=== PATIENT | female | born 1935 | race Caucasian/White ===

== ENCOUNTER → 2016-10-17 | Outpatient (CLI) | payer MEDICARE ==
[2016-10-17 10:26] LABS: ALKALINE PHOSPHATASE 66 U/L (45-117); ALT (GPT) 24 U/L (10-53); ANION GAP 5 MEQ/L (5-15); AST (GOT) 17 U/L (15-37); BICARBONATE 31.5 MEQ/L (21.0-32.0); BLOOD UREA NITROGEN 9 MG/DL (7-18); CHLORIDE 106 MEQ/L (98-107); GLOMERULAR FILTRATION RATE 64 ML/MIN (>89); GLUCOSE,FASTING 91 MG/DL (74-99); HDL CHOLESTEROL 60.5 MG/DL (40.0-60.0); LDL CHOLESTEROL 46 MG/DL (0-99); POTASSIUM 4.4 MEQ/L (3.5-5.1); SODIUM (NA) 142 MEQ/L (136-145); TOTAL BILIRUBIN ADULT 0.5 MG/DL (0.2-1.0)
[2016-10-17 10:38] LABS: CREATINE KINASE 34 U/L (26-192)
== END ==
LOC: PLAB 07:48
DX: E78.00 Pure hypercholesterolemia, unspecified (principal); Z79.899 Other long term (current) drug therapy
CPT/HCPCS: 36415; 80053; 80061; 82550

== ENCOUNTER → 2017-05-05 | Outpatient (CLI) | payer MEDICARE ==
[2017-05-05 12:11] LABS: HEMATOCRIT 41.8 % (35.0-46.0); MEAN CELL VOLUME 96.7 FL (80.0-100.0); MEAN CORPUSCULAR HEMOGLOBIN 31.6 PG (27.0-34.0); MEAN CORPUSCULAR HGB CONC 32.7 % (32.0-36.0); PLATELET COUNT 190 TH/MM3 (150-450); RED BLOOD COUNT 4.32 MIL/MM3 (4.00-5.30); RED CELL DISTRIBUTION WIDTH 13.1 % (11.6-17.2); REVIEW FLAG FINAL; WHITE BLOOD COUNT 4.9 TH/MM3 (4.0-11.0)
[2017-05-05 12:51] LABS: ANION GAP 5 MEQ/L (5-15); AST (GOT) 18 U/L (15-37); BLOOD UREA NITROGEN 14 MG/DL (7-18); CHLORIDE 105 MEQ/L (98-107); GLOMERULAR FILTRATION RATE 75 ML/MIN (>89); GLUCOSE,FASTING 92 MG/DL (74-99); POTASSIUM 4.1 MEQ/L (3.5-5.1); SODIUM (NA) 139 MEQ/L (136-145)
[2017-05-05 12:52] LABS: ALT (GPT) 29 U/L (10-53)
[2017-05-05 12:55] LABS: ALKALINE PHOSPHATASE 71 U/L (45-117); HDL CHOLESTEROL 56.9 MG/DL (40.0-60.0); LDL CHOLESTEROL 65 MG/DL (0-99); TOTAL BILIRUBIN ADULT 0.3 MG/DL (0.2-1.0)
[2017-05-05 12:56] LABS: CREATINE KINASE 55 U/L (26-192)
== END ==
LOC: PLAB 07:44
DX: E78.00 Pure hypercholesterolemia, unspecified (principal); Z79.899 Other long term (current) drug therapy
CPT/HCPCS: 36415; 80053; 80061; 82550; 85027

== ENCOUNTER → 2017-07-22 | Outpatient (CLI) | payer MEDICARE ==
[2017-07-22 13:36] LABS: BLOOD, URINE NEG (NEG); GLUCOSE,URINE NEG (NEG); KETONE, URINE NEG (NEG); MUCUS URINE FEW /lpf (OCC); NITRITE,URINE NEG (NEG); PH, URINE 7.5 (5.0-8.5); SQUAMOUS EPITHELIAL CELL URINE <1 /hpf (0-5); URINE COLOR YELLOW (YELLW/STRAW)
[2017-07-22 13:50] LABS: AUTOMATED NEUTROPHIL # 2.4 TH/MM3 (1.8-7.7); BASOPHIL % 0.3 % (0.0-2.0); EOSINOPHIL # 0.1 TH/MM3 (0-0.4); EOSINOPHIL % 1.6 % (0.0-4.0); HEMATOCRIT 42.8 % (35.0-46.0); HEMO FLAGS DIFF FINAL; LYMPH % 33.5 % (9.0-44.0); LYMPHOCYTE # 1.5 TH/MM3 (1.0-4.8); MEAN CELL VOLUME 95.2 FL (80.0-100.0); MEAN CORPUSCULAR HEMOGLOBIN 31.9 PG (27.0-34.0); MEAN CORPUSCULAR HGB CONC 33.5 % (32.0-36.0); MONO % 9.1 % (0.0-8.0); NEUT % 55.5 % (16.0-70.0); PLATELET COUNT 174 TH/MM3 (150-450); RED CELL DISTRIBUTION WIDTH 13.1 % (11.6-17.2); WHITE BLOOD COUNT 4.4 TH/MM3 (4.0-11.0)
[2017-07-22 14:08] LABS: ANION GAP 6 MEQ/L (5-15); AST (GOT) 29 U/L (15-37); BICARBONATE 27.6 MEQ/L (21.0-32.0); BLOOD UREA NITROGEN 17 MG/DL (7-18); CHLORIDE 105 MEQ/L (98-107); GLOMERULAR FILTRATION RATE 70 ML/MIN (>89); SODIUM (NA) 139 MEQ/L (136-145)
[2017-07-22 14:13] LABS: ALKALINE PHOSPHATASE 68 U/L (45-117); ALT (GPT) 45 U/L (10-53); TOTAL BILIRUBIN ADULT 0.4 MG/DL (0.2-1.0)
[2017-07-22 22:32] LABS: TOTAL PROTEIN SPE 6.1 GM/DL (6.0-7.6)
[2017-07-22 22:46] LABS: ALBUMIN SPE 3.98 GM/DL (3.50-5.00); ALPHA 1 GLOBULIN 0.16 GM/DL (0.11-0.29); ALPHA 2 GLOBULIN 0.71 GM/DL (0.22-1.00); BETA GLOBULINS (SPE) 0.6 GM/DL (0.53-1.03)
[2017-07-23 15:46] LABS: ANA SCREEN POS (NEG)
[2017-07-23 23:52] LABS: THYROGLOB ABS LESS THAN 1 IU/mL (< OR = 1)
[2017-07-25 15:51] LABS: A TENUIS 1 kU/L; A TENUIS CLASS 2; ALMOND LESS THAN 0.10 kU/L; ALMOND CLASS 0; BAHIA GRASS LESS THAN 0.10 kU/L; BAHIA GRASS CLASS 0; BERMUDA GRASS LESS THAN 0.10 kU/L; BERMUDA GRASS CLASS 0; BIRCH CLASS 0; C HERBARUM LESS THAN 0.10 kU/L; C HERBARUM CLASS 0; CASHEW CLASS 0; CAT DANDER LESS THAN 0.10 kU/L; CAT DANDER CLASS 0; COCKROACH LESS THAN 0.10 kU/L; COCKROACH CLASS 0; CODFISH CLASS 0; COMMON PIGWEED LESS THAN 0.10 kU/L; COMMON PIGWEED CLASS 0; COMMON RAGWEED 0.18 kU/L; COWS MILK CLASS 0; COWS MILK IGE LESS THAN 0.10 kU/L; D FARINAE 0.12 kU/L; D PTERONYSSINUS LESS THAN 0.10 kU/L; D PTERONYSSINUS CLASS 0; DOG DANDER LESS THAN 0.10 kU/L; DOG DANDER CLASS 0; EGG WHITE LESS THAN 0.10 kU/L; EGG WHITE CLASS 0; ELM CLASS 0; HAZELNUT LESS THAN 0.10 kU/L; HAZELNUT CLASS 0; MAPLE (BOX ELDER) LESS THAN 0.10 kU/L; MAPLE (BOX ELDER) CLASS 0; MOUNTAIN CEDAR LESS THAN 0.10 kU/L; MOUNTAIN CEDAR CLASS 0; MOUSE CLASS 0; MOUSE URINE PROTEINS LESS THAN 0.10 kU/L; NETTLE LESS THAN 0.10 kU/L; NETTLE CLASS 0; OAK WHITE LESS THAN 0.10 kU/L; OAK WHITE CLASS 0; P NOTATUM 0.18 kU/L; PEANUT LESS THAN 0.10 kU/L; PEANUT CLASS 0; PECAN TREE CLASS 0; SALMON LESS THAN 0.10 kU/L; SALMON CLASS 0; SCALLOP LESS THAN 0.10 kU/L; SCALLOP CLASS 0; SESAME SEED LESS THAN 0.10 kU/L; SESAME SEED CLASS 0; SHEEP SORREL LESS THAN 0.10 kU/L; SHEEP SORREL CLASS 0; SHRIMP LESS THAN 0.10 kU/L; SHRIMP CLASS 0; SOYBEAN LESS THAN 0.10 kU/L; SOYBEAN CLASS 0; TIMOTHY GRASS LESS THAN 0.10 kU/L; TIMOTHY GRASS CLASS 0; TUNA LESS THAN 0.10 kU/L; TUNA CLASS 0; WALNUT LESS THAN 0.10 kU/L; WALNUT CLASS 0; WHEAT LESS THAN 0.10 kU/L; WHEAT CLASS 0
== END ==
LOC: PLAB 08:10
PROVIDERS: ATTEND Allergy & Immunology
DX: L50.0 Allergic urticaria (principal)
CPT/HCPCS: 36415; 80053; 81001; 82785; 84165; 85025; 86003; 86038; 86039; 86376; 86800

== ENCOUNTER → 2017-10-28 | Outpatient (CLI) | payer MEDICARE ==
[2017-10-28 11:40] LABS: ALBUMIN 3.6 GM/DL (3.4-5.0); AST (GOT) 21 U/L (15-37); BICARBONATE 29.4 MEQ/L (21.0-32.0); BLOOD UREA NITROGEN 13 MG/DL (7-18); CHLORIDE 104 MEQ/L (98-107); GLOMERULAR FILTRATION RATE 60 ML/MIN (>89); GLUCOSE,FASTING 95 MG/DL (74-99); SODIUM (NA) 141 MEQ/L (136-145)
[2017-10-28 11:45] LABS: ALKALINE PHOSPHATASE 66 U/L (45-117); ALT (GPT) 28 U/L (10-53); CHOLESTEROL 139 MG/DL (120-200); CHOLESTEROL/ HDL RATIO 2.32 RATIO; HDL CHOLESTEROL 59.8 MG/DL (40.0-60.0); LDL CHOLESTEROL 61 MG/DL (0-99); TOTAL BILIRUBIN ADULT 0.5 MG/DL (0.2-1.0); TOTAL PROTEIN 6.6 GM/DL (6.4-8.2); TRIGLYCERIDES 89 MG/DL (42-150)
== END ==
LOC: PLAB 08:52
DX: E78.00 Pure hypercholesterolemia, unspecified (principal); Z79.899 Other long term (current) drug therapy
CPT/HCPCS: 36415; 80053; 80061; 82550